=== PATIENT | female | born 1965 | race African-American/Black ===

== ENCOUNTER 2018-05-04 16:25 | Emergency (ER) | payer BC ==
[~2018-05-04] VITALS: Ht 170.2 cm; Wt 90.0 kg
[2018-05-04 17:46] LABS: BASOPHILS % 1.2 % (0.0-2.0); EOSINOPHILS % 2.1 % (0.0-5.0); HEMATOCRIT. 41.7 % (36.0-48.0); LYMPHOCYTES % 24.9 % (20.0-50.0); MEAN CORPUSCULAR HEMOGLOBIN 30.1 pg (28.0-32.0); MEAN CORPUSCULAR VOLUME 89.9 fL (81.0-99.0); MONOCYTES % 8.2 % (2.0-8.0); NEUTROPHILS % 63.6 % (40.0-76.0); PLATELET 247 x1000/uL (130-400); RED BLOOD CELL COUNT 4.64 mill/uL (4.2-5.4); RED CELL DISTRIBUTION WIDTH 15.8 % (11.6-14.6)
[2018-05-04 17:52] LABS: CHLORIDE 107 mEq/L (98-107)
[2018-05-04 19:18] VITALS: BP 166/72
== END 2018-05-04 19:28 | disposition home or self-care (01) ==
LOC: ER 16:25 → CANBEDREQ 22:57
DX: R07.89 Other chest pain (principal)
CPT/HCPCS: 36415; 71045; 83880; 84484; 93005; 99284